=== PATIENT | male | born 1990 | race Caucasian/White ===

== ENCOUNTER 2021-03-01 07:18 | Emergency (ER) | payer OTHER, SELFPAY ==
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
[2021-03-01] MEDS ORDERED: TETANUS & DIPHTHERIA TOX,ADULT 0.5 ML VIAL ONE (08:56)
[2021-03-01 09:01] VITALS: BP 140/107; TEMP 98.3; O2SAT 99
== END 2021-03-01 08:55 | disposition home or self-care (01) ==
LOC: ER 07:18
DX: S13.4XXA Sprain of ligaments of cervical spine, initial encounter (principal); S20.312A Abrasion of left front wall of thorax, initial encounter; V49.40XA Driver injured in collision with unspecified motor vehicles in traffic accident, initial encounter; Z72.0 Tobacco use; Z23 Encounter for immunization
CPT/HCPCS: 70450; 71260; 72125; 74177; 82565; 90471; 90714; 99284; G0390; Q9967

== ENCOUNTER 2022-09-28 00:41 | Emergency (ER) | payer BC ==
--- NOTE | 2022-09-28 02:32 | EDPHYS ---
Physician Documentation [facility] Name: Juan Gregory Age: 32 yrs Sex: Male : 1990 Arrival Date: 09/28/2022 Time: 00:41 Bed 12 Private MD: ED Physician Tutu Silva HPI: 09/28 02:28 This 32 yrs old Male presents to ER via Wheelchair with complaints of Penile Injury, [facility] Penile Bleeding. 02:28 This is a 32-year-old male with no chronic medical conditions presents emerged part [facility] with complaints of penile bleeding which occurred during intercourse. Patient states he is circumcised and felt a tear to his penis. Patient was having difficulty controlling bleeding at home. Historical: - Allergies: 00:58 No Known Allergies; pf1 - Home Meds: 00:58 None [Active]; pf1 - PMHx: 00:58 None; pf1 - PSHx: 00:58 None; pf1 - Immunization history:: Adult Immunizations up to date, Last tetanus immunization: > 10 years ago. - Social history:: Smoking status: Patient/guardian denies using tobacco, the patient reports quitting approximately 1 years ago, Patient uses alcohol, but reports only rare drinking. Patient/guardian denies using street drugs. ROS: 02:48 Constitutional: Negative for fever, chills, and weight loss, Cardiovascular: Negative jmm for chest pain, palpitations, and edema, Respiratory: Negative for shortness of breath, cough, wheezing, and pleuritic chest pain. 02:48 All other systems are negative. Exam: 02:48 Constitutional: This is a well developed, well nourished patient who is awake, alert, jmm and in no acute distress. Head/Face: atraumatic. Eyes: EOMI, no conjunctival erythema appreciated ENT: Moist Mucus Membranes Neck: Trachea midline, Supple Chest/axilla: Normal chest wall appearance and motion. Cardiovascular: Regular rate and rhythm. No edema appreciated Respiratory: Normal respirations, no respiratory distress appreciated Abdomen/GI: Non distended Back: Normal ROM 02:48 MS/ Extremity: Moves all extremities, no obvious deformities appreciated, no edema noted to the lower extremities Neuro: Awake and alert Psych: Behavior is normal, Mood is normal, Patient is cooperative and pleasant 02:48 : Penile frenulum tear noted to the head of the penis, mild bleeding appreciated. 02:48 Skin: Vital Signs: 00:52 BP 143 / 74; Pulse 73; Resp 18; Temp 98.1; Pulse Ox 97% on R/A; Pain 1/10; pf1 02:00 BP 134 / 78; Pulse 75; Resp 16; Pulse Ox 98% on R/A; Pain 0/10; pf1 00:52 Pain Scale: Adult pf1 02:00 Pain Scale: Adult pf1 MDM: 01:12 Patient medically screened. [facility] 02:49 Differential diagnosis: Penile tear. Data reviewed: vital signs, nurses notes. I charlie considered the following discharge prescriptions or medication management in the emergency department. Historians other than the Patient: . Counseling: I had a detailed discussion with the patient and/or guardian regarding: the historical points, exam findings, and any diagnostic results supporting the discharge/admit diagnosis, the need for outpatient follow up, to return to the emergency department if symptoms worsen or persist or if there are any questions or concerns that arise at home. ED course: Bleeding spontaneously stopped after application of pressure for approximately 5 minutes using Surgicel.. Administered Medications: No medications were administered Disposition: 05:48 Co-signature as Attending Physician, Tutu Silva MD I agree with the assessment sp4 and plan of care. I reviewed the patient's care provided by the Advanced Practice Provider and agree with the diagnosis and treatment plan. Disposition Summary: 09/28/22 02:32 Discharge Ordered Location: Home [facility] Condition: Stable [facility] Diagnosis - Unspecified superficial injury of penis, initial encounter [facility] Followup: [facility] - With: Toñito Hurtado MD - When: 2 - 3 days - Reason: Recheck today's complaints, Continuance of care, Re-evaluation by your physician Discharge Instructions: - Discharge Summary Sheet [facility] Forms: - Medication Reconciliation Form [facility] - Thank You Letter charlie - Antibiotic Education charlie - Prescription Opioid Use [facility] Signatures: Kwan Hyman PA PA jmm finley, Pamala, RN RN pf1 Tutu Silva MD MD sp4 Corrections: (The following items were deleted from the chart) 02:48 02:28 This is a 32-year-old male. charlie guerra
--- NOTE | 2022-09-28 02:32 | ER ---
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 pf1 Patient stated was having intercourse with his when he felt a pop from the foreskin of his penis and started having bleeding. Patient stated is not circumcised. Coronavirus screen: Vaccine status: Patient reports receiving the 2nd dose of the covid vaccine. 3 doses of [place] Client denies travel out of the [place] in the last 14 days. At this time, the client does not indicate any symptoms associated with coronavirus-19. Ebola Screen: Patient negative for fever greater than or equal to 101.5 degrees Fahrenheit, and additional compatible Ebola Virus Disease symptoms. Initial Sepsis Screen: Does the patient meet any 2 criteria? No. Patient's initial sepsis screen is negative. Does the patient have a suspected source of infection? No. Patient's initial sepsis screen is negative. Risk Assessment: Do you want to hurt yourself or someone else? Patient reports no desire to harm self or others. 00:52 Method Of Arrival: Wheelchair pf1 00:52 Acuity: LIANA 3 pf1 Triage Assessment: 01:00 General: Appears in no apparent distress. comfortable, Behavior is calm, cooperative, pf1 appropriate for age, quiet. Historical: - Allergies: 00:58 No Known Allergies; pf1 - Home Meds: 00:58 None [Active]; pf1 - PMHx: 00:58 None; pf1 - PSHx: 00:58 None; pf1 - Immunization history:: Adult Immunizations up to date, Last tetanus immunization: > 10 years ago. - Social history:: Smoking status: Patient/guardian denies using tobacco, the patient reports quitting approximately 1 years ago, Patient uses alcohol, but reports only rare drinking. Patient/guardian denies using street drugs. Screenin:00 [facility] ED Fall Risk Assessment (Adult) History of falling in the last 3 months, pf1 including since admission No falls in past 3 months (0 pts) Confusion or Disorientation No (0 pts) Intoxicated or Sedated No (0 pts) Impaired Gait No (0 pts) Mobility Assist Device Used No (0 pt) Altered Elimination No (0 pt) Score/Fall Risk Level 0 - 2 = Low Risk Oriented to surroundings, Maintained a safe environment, Educated pt \T\ family on fall prevention, incl call for assistance when getting out of bed, Assessed \T\ reinforced patient's understanding of fall precautions, Provided non-skid footwear, Hourly rounding (assess needs \T\ fall precautionary measures) done, Used ambulatory aids as needed (educated on \T\ assisted with), Used gait belt as appropriate. Abuse screen: Denies threats or abuse. Nutritional screening: No deficits noted. Tuberculosis screening: No symptoms or risk factors identified. Assessment: 01:00 General: Appears in no apparent distress. comfortable, obese, well groomed, well pf1 developed. 01:00 Pain: Complains of pain in penis Pain currently is 1 out of 10 on a pain scale. Neuro: pf1 No deficits noted. Level of Consciousness is awake, alert, obeys commands, Oriented to person, place, time, situation. Cardiovascular: No deficits noted. Capillary refill < 3 seconds Patient's skin is warm and dry. Respiratory: No deficits noted. Airway is patent Trachea midline Respiratory effort is even, unlabored, Respiratory pattern is regular, symmetrical. GI: No deficits noted. No signs and/or symptoms were reported involving the gastrointestinal system. : No deficits noted. No signs and/or symptoms were reported regarding the genitourinary system. EENT: No deficits noted. No signs and/or symptoms were reported regarding the EENT system. Derm:. Musculoskeletal: No deficits noted. No signs and/or symptoms reported regarding the musculoskeletal system. 01:00 Derm: Wound noted penis with superifical laceration. pf1 Vital Signs: 00:52 BP 143 / 74; Pulse 73; Resp 18; Temp 98.1; Pulse Ox 97% on R/A; Pain 1/10; pf1 02:00 BP 134 / 78; Pulse 75; Resp 16; Pulse Ox 98% on R/A; Pain 0/10; pf1 00:52 Pain Scale: Adult pf1 02:00 Pain Scale: Adult pf1 ED Course: 00:42 Patient arrived in ED. jj6 00:57 Triage completed. pf1 01:00 Arm band placed on. pf1 01:00 Patient has correct armband on for positive identification. Placed in gown. Bed in low pf1 position. Call light in reach. 01:00 No provider procedures requiring assistance completed. pf1 01:00 Patient did not have IV access during this emergency room visit. pf1 01:07 Kwan Hyman PA is PHCP. charlie 01:07 Tutu Silva MD is Attending Physician. [facility] 02:31 Toñito Hurtado MD is Referral Physician. charlie Administered Medications: No medications were administered Medication: 01:00 VIS not applicable for this client. pf1 Outcome: 02:32 Discharge ordered by . charlie 02:44 Discharged to home ambulatory, with family. pf1 02:44 Condition: improved 02:44 Discharge instructions given to patient, Instructed on discharge instructions, follow up and referral plans. Demonstrated understanding of instructions, follow-up care. 02:45 Patient left the ED. pf1 Signatures: Kwan Hyman PA PA jmm Jeffries, Jennifer jj6 Zoe hyatt, RN RN pf1
[2022-09-28 03:19] VITALS: BP 143/74; TEMP 98.1; O2SAT 97
== END 2022-09-28 02:45 | disposition home or self-care (01) ==
LOC: ER 00:41
DX: S30.93XA Unspecified superficial injury of penis, initial encounter (principal)
CPT/HCPCS: 99282